=== PATIENT | female | born 1960 | race African-American/Black ===

== ENCOUNTER 2017-03-03 08:54 | Observation (INO) | payer SELFPAY ==
[~2017-03-03] VITALS: Ht 157.5 cm; Wt 95.0 kg
[~2017-03-03 08:54] MED LIST: HYDR-2768 PO; NORV10TA PO; OMPR20CCR PO
[2017-03-03 08:58] VITALS: BP 200/89; PULSE 78; RESP 20; TEMP 98; O2SAT 98
[2017-03-03] MEDS ORDERED: AMLO5TAB2 PO (09:11)
[2017-03-03] MEDS ORDERED: HYDR25TA5 PO (09:11)
[2017-03-03] MEDS ORDERED: ASPIRIN 325 MG TAB PO ONE (09:45)
[2017-03-03] MEDS ORDERED: SODIUM CHLORIDE 0.9% FLUSH 10 ML FLUSH IVF PRN (09:45)
[2017-03-03 09:46] VITALS: RESP 18; O2SAT 100
[2017-03-03 09:47] VITALS: BP 153/78; PULSE 76; RESP 18; O2SAT 100
--- NOTE | 2017-03-03 09:50 | PD ---
HPI Chief Complaint: Chest Pain Time Seen by Provider: 09:39 Travel History International Travel<30 days: No Contact w/Intl Traveler<30days: No Traveled to known affect area: No History of Present Illness HPI The patient was seen and examined in the presence of the nurse. 2 days ago this patient had some pain and pressure. It was centered about the left shoulder but included in the left pectoral region and radiated down her arm toward the hand. Lasted several hours and resolved. Today she complains of palpitations with unsettling sensation in her chest. She does not describe today's sensation as pain or pressure. Not having presyncopal symptoms. Did have some shortness of breath with her chest discomfort. No productive cough or fever congestion. Symptoms severity is moderate. She is highly anxious person. PFSH Past Medical History Arthritis: Yes Asthma: No Autoimmune Disease: No Anxiety: Yes Depression: No Cardiac Catheterization: No Cardiovascular Problems: Yes (htn) High Cholesterol: Yes Chemotherapy: No Chest Pain: Yes Congestive Heart Failure: No COPD: No Diabetes: No Diminished Hearing: No Endocrine: No Gastrointestinal Disorders: Yes GERD: Yes Genitourinary: No Headaches: Yes Hypertension: Yes Immune Disorder: No Kidney Stones: No Musculoskeletal: Yes (FIBROMYALGIA) Neurologic: Yes Psychiatric: Yes Reproductive: No Respiratory: No Migraines: No Myocardial Infarction: No Radiation Therapy: No Renal Failure: No Seizures: No Sickle Cell Disease: No Sleep Apnea: No Thyroid Disease: No Ulcer: Yes Tetanus Vaccination: > 5 Years Influenza Vaccination: Yes PNEUMOCCOCAL Vaccine (Year): 2 ?: Not Menopausal: Yes : 2 Para: 2 Past Surgical History Abdominal Surgery: No AICD: No Arteriovenous Shunt: No Cardiac Surgery: No Section: Yes (X2) Coronary Artery Bypass Graft: No Ear Surgery: No Endocrine Surgery: No Eye Surgery: No Genitourinary Surgery: No Gynecologic Surgery: Yes ( X 2) Hysterectomy: Yes Insulin Pump: No Joint Replacement: No Oral Surgery: No Pacemaker: No Thoracic Surgery: No Other Surgery: Yes Family History Family Myocardial Infarction: Yes (MOTHER IN LATE 50'S ) Social History Alcohol Use: Yes (OCC) Tobacco Use: No Substance Use: No (PT DENIES ) Allergies-Medications (Allergen,Severity, Reaction): Coded Allergies: Codeine (Verified Adverse Reaction, Intermediate, N/V, 7/30/17) Reported Meds & Prescriptions Reported Meds & Active Scripts Active Reported Hydrochlorothiazide 25 Mg Tab 25 Mg PO DAILY Amlodipine (Amlodipine Besylate) 5 Mg Tab 5 Mg PO DAILY Review of Systems General / Constitutional: No: Fever Eyes: No: Visual changes HENT: No: Headaches Cardiovascular: Positive: Chest Pain or Discomfort Respiratory: Positive: Shortness of Breath Gastrointestinal: No: Abdominal Pain Genitourinary: No: Dysuria Musculoskeletal: No: Pain Skin: No Rash Neurologic: No: Weakness Psychiatric: Positive: Anxiety, No: Depression Endocrine: No: Polydipsia Hematologic/Lymphatic: No: Easy Bruising Physical Exam Narrative GENERAL: Well-nourished, well-developed patient in no apparent distress. SKIN: Focused skin assessment reveals no rash and nodules. Skin is Warm and dry. HEAD: Atraumatic. Normocephalic. EYES: Pupils equal and round. No scleral icterus. No injection or drainage. ENT: No nasal bleeding or discharge. Mucous membranes pink and moist. NECK: Trachea midline. No JVD. CARDIOVASCULAR: Regular rate and rhythm. 2/6 systolic murmur appreciated. RESPIRATORY: No accessory muscle use. Clear to auscultation. Breath sounds equal bilaterally. GASTROINTESTINAL: Abdomen soft, non-tender, nondistended. Hepatic and splenic margins not palpable. MUSCULOSKELETAL: No obvious deformities. No clubbing. No cyanosis. No edema. NEUROLOGICAL: Awake and alert. No obvious cranial nerve deficits. Motor grossly within normal limits. Normal speech. PSYCHIATRIC: Anxious mood and affect; insight and judgment normal. Data Data Last Documented VS Vital Signs Date Time Temp Pulse Resp B/P Pulse Ox O2 Delivery O2 Flow Rate FiO2 03/03/17 09:47 76 18 153/78 100 Room Air 03/03/17 08:58 98.0 Orders Electrocardiogram (03/03/17 ) Electrocardiogram (03/03/17 09:44) Basic Metabolic Panel (Bmp) (03/03/17 09:44) Ckmb (Isoenzyme) Profile (03/03/17 09:44) Complete Blood Count With Diff (03/03/17 09:44) Prothrombin Time / Inr (Pt) (03/03/17 09:44) Act Partial Throm Time (Ptt) (03/03/17 09:44) Troponin I (03/03/17 09:44) Chest, Single Ap (03/03/17 09:44) Ecg Monitoring (03/03/17 09:44) Iv Access Insert/Monitor (03/03/17 09:44) Oximetry (03/03/17 09:44) Aspirin (Aspirin) (03/03/17 09:45) Sodium Chloride 0.9% Flush (Ns Flush) (03/03/17 09:45) CKMB (03/03/17 09:41) CKMB% (03/03/17 09:41) Labs Laboratory Tests Test 03/03/17 09:41 White Blood Count 4.9 TH/MM3 Red Blood Count 4.77 MIL/MM3 Hemoglobin 13.8 GM/DL Hematocrit 41.0 % Mean Corpuscular Volume 85.9 FL Mean Corpuscular Hemoglobin 29.0 PG Mean Corpuscular Hemoglobin 33.7 % Concent Red Cell Distribution Width 13.2 % Platelet Count 246 TH/MM3 Mean Platelet Volume 9.5 FL Neutrophils (%) (Auto) 44.0 % Lymphocytes (%) (Auto) 47.9 % Monocytes (%) (Auto) 6.7 % Eosinophils (%) (Auto) 0.9 % Basophils (%) (Auto) 0.5 % Neutrophils # (Auto) 2.1 TH/MM3 Lymphocytes # (Auto) 2.3 TH/MM3 Monocytes # (Auto) 0.3 TH/MM3 Eosinophils # (Auto) 0.0 TH/MM3 Basophils # (Auto) 0.0 TH/MM3 CBC Comment DIFF FINAL Differential Comment Prothrombin Time 10.2 SEC Prothromb Time International 0.9 RATIO Ratio Activated Partial 27.1 SEC Thromboplast Time Sodium Level 137 MEQ/L Potassium Level 3.7 MEQ/L Chloride Level 104 MEQ/L Carbon Dioxide Level 27.7 MEQ/L Anion Gap 5 MEQ/L Blood Urea Nitrogen 16 MG/DL Creatinine 0.66 MG/DL Estimat Glomerular Filtration 111 ML/MIN Rate Random Glucose 96 MG/DL Calcium Level 8.9 MG/DL Total Creatine Kinase 528 U/L Creatine Kinase MB 3.1 NG/ML Creatine Kinase MB % 0.6 % Troponin I LESS THAN 0.02 NG/ML MDM Medical Decision Making Medical Screen Exam Complete: Yes Emergency Medical Condition: Yes Medical Record Reviewed: Yes Differential Diagnosis Differential diagnosis includes WA, angina, pericarditis, pleurisy, GERD, anxiety. Narrative Course I have reviewed the patient's electronic medical record. Patient had a stress test August 2015 which was normal in the chest pain center IV placed I reviewed the EKG which shows sinus rhythm but no ST elevation or ectopy I reviewed the chest x-ray which is under aerated but otherwise negative Extended cardiac monitoring shows sinus rhythm without ectopy CBC is normal Metabolic profile is normal CK has a normal MB percent Troponin is normal Coagulation studies are normal I gave her an aspirin Patient has accelerated hypertension of 200 systolic on arrival. Spontaneously came down into the 150s. Patient has atypical symptoms but will be 23 hour observation in the chest pain center to rule out cardiac cause of her symptoms. Diagnosis Primary Impression: Atypical chest pain Additional Impression: HTN (hypertension) Qualified Code: I10 - Hypertension, unspecified type Admitting Information Admitting Physician Requests: Observation Reed Singleton MD Mar 03, 2017 09:50
[2017-03-03 10:09] LABS: AUTOMATED NEUTROPHIL # 2.1 TH/MM3 (1.8-7.7); BASOPHIL % 0.5 % (0.0-2.0); EOSINOPHIL % 0.9 % (0.0-4.0); HEMO FLAGS DIFF FINAL; LYMPH % 47.9 % (9.0-44.0); LYMPHOCYTE # 2.3 TH/MM3 (1.0-4.8); MEAN CELL VOLUME 85.9 FL (80.0-100.0); MEAN CORPUSCULAR HGB CONC 33.7 % (32.0-36.0); MONO % 6.7 % (0.0-8.0); PLATELET COUNT 246 TH/MM3 (150-450); RED BLOOD COUNT 4.77 MIL/MM3 (4.00-5.30); RED CELL DISTRIBUTION WIDTH 13.2 % (11.6-17.2); WHITE BLOOD COUNT 4.9 TH/MM3 (4.0-11.0)
[2017-03-03 10:16] LABS: APTT (PATIENT) 27.1 SEC (24.3-30.1); INTERNATIONAL NORMALIZED RATIO 0.9 RATIO; PROTHROMBIN TIME - PATIENT 10.2 SEC (9.8-11.6)
[2017-03-03 10:25] LABS: ANION GAP 5 MEQ/L (5-15); BICARBONATE 27.7 MEQ/L (21.0-32.0); BLOOD UREA NITROGEN 16 MG/DL (7-18); CHLORIDE 104 MEQ/L (98-107); GLOMERULAR FILTRATION RATE 111 ML/MIN (>89); POTASSIUM 3.7 MEQ/L (3.5-5.1); SODIUM (NA) 137 MEQ/L (136-145)
[2017-03-03 10:30] LABS: CREATINE KINASE 528 U/L (26-192)
--- NOTE | 2017-03-03 10:39 | RADRPT ---
EXAM DATE/TIME: 03/03/2017 10:12 [facility] COMPARISON: CHEST SINGLE AP, August 08, 2015, 22:39. INDICATIONS : Chest pain. MEDICAL HISTORY : None. SURGICAL HISTORY : None. ENCOUNTER: Initial ACUITY: 1 day PAIN SCORE: 0/10 LOCATION: Bilateral chest FINDINGS: The lungs are under aerated with minimal bibasal probable changes. The cardiomediastinal contours ar e unremarkable. Osseous structures are intact. CONCLUSION: Unaerated, negative for acute process. Phi Ren MD FACR on March 03, 2017 at 10:37 Board Certified Radiologist. This report was verified electronically.
[2017-03-03 10:42] LABS: CKMB 3.1 NG/ML (0.5-3.6)
[2017-03-03] MEDS ORDERED: NITROGLYCERIN 0.4 MG SL 25 TABS/BTL SL PRN (12:30)
[2017-03-03] MEDS ORDERED: ACETAMINOPHEN 500 MG CPLT PO PRN (12:30)
[2017-03-03] MEDS ORDERED: ONDANSETRON HCL 4 MG/2 ML VIAL IV PRN (12:30)
[2017-03-03] MEDS ORDERED: SODIUM CHLORIDE 0.9% FLUSH 10 ML FLUSH IV FLUSH PRN (12:30)
--- NOTE | 2017-03-03 12:50 | HHI.HP ---
HPI Primary Care Physician Cody Dowinng DO Chief Complaint Chest pain History of Present Illness 56-year-old female with history of hypertension, hyperlipidemia, and anxiety presents to emergency room for further evaluation of a "funny feeling" in her chest and left shoulder pain. Onset 4 days ago. Location left shoulder with radiation to her left forearm. Characterized as a dull hurting pain. No particular movements, position, or palpation made pain better or worse. Duration lasted 23 minutes. Stating hours later again experienced left shoulder discomfort with duration of 2 minutes. Since this time intermittent left shoulder pain. Also, concerned over a fluttering in her chest stating ' feels like when you get scared." Denies palpitations or feelings of skipped heartbeats. Duration seconds. No dizziness, or LOC. Endorses current situational stress and history of anxiety. Intermittent fluttering in her chest paired with left intermittent shoulder pain concerned her therefore came to the emergency room for further evaluation. Review of Systems General: No fatigue,weakness, fever, chills, recent illness, recent travel, or change in appetite. Endorses current situational stress. 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 CV: As stated above. No chest pain or pressure. Denies palpitations reports quick, intermittent fluttering in chest. RESP: No SOB, cough GI: No nausea or vomiting. Attempting to lose weight with diet. EXT: No lower leg edema, no paraesthesias MS: As stated above. No change in ROM. Intermittent left shoulder pain with radiation down left arm PSYCH: Endorses situational stress and history of anxiety. Her PCP prescribed Ativan twice a day as needed, states she takes occasionally. Past Family Social History Allergies: Coded Allergies: Codeine (Verified Adverse Reaction, Intermediate, N/V, 03/03/17) Past Medical History Hypertension, hyperlipidemia, anxiety, GERD, arthritis Past Surgical History Hysterectomy, Reported Medications Active Reported Hydrochlorothiazide 25 Mg Tab 25 Mg PO DAILY Amlodipine (Amlodipine Besylate) 5 Mg Tab 5 Mg PO DAILY Was taking prescription gerd medication, cannot recall name of medication. Active Ordered Medications Current Medications Medications (Trade) Dose Ordered Sig/Nazario Route Start Time Stop Time Status Last Admin (NS Flush) 2 ml UNSCH PRN IV FLUSH 03/03/17 12:30 (NS Flush) 2 ml BID IV FLUSH 03/03/17 21:00 (Tylenol) 500 mg Q4H PRN PO 03/03/17 12:30 (Zofran Inj) 4 mg Q6H PRN IV 03/03/17 12:30 (Nitrostat Sl) 0.4 mg Q5M PRN SL 03/03/17 12:30 (Aspirin) 325 mg DAILY PO 03/04/17 09:00 Social History Known hypertension. Recently total cholesterol mildly elevated encouraged to change diet. No known diabetes. Lifelong nonsmoker. Denies any alcohol or illegal drug use. Endorses sedentary lifestyle stating she is unable to make time for personal exercise as she is the sole caregiver of her disabled . Past cardiac testing 08/09/15 Exercise stress test, ambulated 6:48 minutes, no signs of ischemia. Physical Exam Vital Signs Vital Signs Date Time Temp Pulse Resp B/P Pulse Ox O2 Delivery O2 Flow Rate FiO2 03/03/17 09:47 76 18 153/78 100 Room Air 03/03/17 09:46 18 100 Room Air 03/03/17 09:10 81 17 100 Room Air 03/03/17 08:58 98.0 78 20 200/89 98 Room Air Physical Exam GENERAL: Alert WN, WD, NAD, pleasant, obese female HEAD: NC, AT CV: RRR, 2/6 systolic murmur most likely aortic sclerosis, no rub, gallop, or JVD, S1-S2 no S3-S4. No carotid or femoral bruits. RESP: Clear lungs throughout bilateral, no crackles, wheeze, rhonchi, symmetrical chest rise, nonlabored, able to speak in full sentences ABD: Soft, NT, ND, no masses, positive bowel tones EXT: Pulses +24, no dependent edema MS: Normal tone 4 extremities, tender left shoulder with passive external and internal rotation as well as palpation. no obvious deformities, full range of motion NEURO: CN II through CN XII grossly intact, motor strength 5/5 PSYCH: A+O 3, pleasant affect, appropriate speech, appropriate mood and affect , insight and judgment SKIN: Normal turgor, normal texture Laboratory Laboratory Tests Test 03/03/17 09:41 White Blood Count 4.9 Red Blood Count 4.77 Hemoglobin 13.8 Hematocrit 41.0 Mean Corpuscular Volume 85.9 Mean Corpuscular Hemoglobin 29.0 Mean Corpuscular Hemoglobin 33.7 Concent Red Cell Distribution Width 13.2 Platelet Count 246 Mean Platelet Volume 9.5 Neutrophils (%) (Auto) 44.0 Lymphocytes (%) (Auto) 47.9 Monocytes (%) (Auto) 6.7 Eosinophils (%) (Auto) 0.9 Basophils (%) (Auto) 0.5 Neutrophils # (Auto) 2.1 Lymphocytes # (Auto) 2.3 Monocytes # (Auto) 0.3 Eosinophils # (Auto) 0.0 Basophils # (Auto) 0.0 CBC Comment DIFF FINAL Differential Comment Prothrombin Time 10.2 Prothromb Time International 0.9 Ratio Activated Partial 27.1 Thromboplast Time Sodium Level 137 Potassium Level 3.7 Chloride Level 104 Carbon Dioxide Level 27.7 Anion Gap 5 Blood Urea Nitrogen 16 Creatinine 0.66 Estimat Glomerular Filtration 111 Rate Random Glucose 96 Calcium Level 8.9 Total Creatine Kinase 528 Creatine Kinase MB 3.1 Creatine Kinase MB % 0.6 Troponin I LESS THAN 0.02 Result Diagram: 03/03/17 0941 03/03/1741 Imaging Last Impressions Chest X-Ray 03/03/1744 Signed Impressions: Service Date/Time: Friday, March 03, 2017 10:12 - CONCLUSION: Unaerated, negative for acute process. Phi Ren MD FACR Course EKG Normal sinus rhythm, normal axis, no ST or T-segment changes Assessment and Plan Assessment and Plan #1 Atypical chest painadmitted to chest pain center. Seen and evaluated by Dr. Ludwin Last. Ruled out with EKG and cardiac enzymes. Chest discomfort clearly not cardiac related. Normal exercise stress test last year and atypical discomfort will not require further cardiac testing. Reassurance provided, time for questions and answers provided. Plans for discharge. Patient agreeable to plan of care. #2 Left shoulder painencouraged using heat to affected area and may use over- the-counter Aleve or Motrin as needed. If shoulder pain persists, follow-up with PCP in 2 weeks. #3 Hypertensioncontinue amlodipine and HCTZ, encouraged low-sodium diet, and beginning a daily exercise routine. Discussed with PCP possibly adding statin therapy due to systolic murmur noted. #4 Situational stressdiscussed in length feelings in her chest related to anxiety. Encouraged use of Ativan as prescribed by her PCP. Discussed benefits of daily exercise as a way to relieve stress. Allie Henning Mar 03, 2017 12:50
--- NOTE | 2017-03-03 12:58 | HHI.DCPOC ---
Discharge Care Plan Diagnosis: (1) Anxiety (2) Left shoulder pain (3) Situational stress Goals to Promote Your Health * To prevent worsening of your condition and complications * To maintain your health at the optimal level Directions to Meet Your Goals Take your medications as prescribed Follow your dietary instruction Follow activity as directed Keep your appointments as scheduled Take your immunizations and boosters as scheduled If your symptoms worsen call your PCP, if no PCP go to Urgent Care Center or Emergency Room Smoking is Dangerous to Your Health. Avoid second hand smoke Call the 24-hour hour crisis hotline for domestic abuse at Allie Henning Mar 03, 2017 12:58
[2017-03-03 13:03] VITALS: BP 148/81; TEMP 97.8
--- NOTE | 2017-03-03 16:30 | EKG ---
Date Performed: 03/03/2017 Time Performed: 09:19:06 PTAGE: 56 years EKG: Sinus rhythm NORMAL ECG PREVIOUS TRACING : 08/09/2015 04.23 Since previous tracing, no significant change noted DOCTOR: Ludwin Last Interpretating Date/Time 03/03/2017 16:30:34
[2017-03-03] MEDS ORDERED: SODIUM CHLORIDE 0.9% FLUSH 10 ML FLUSH IV FLUSH SCH (21:00)
[2017-03-04] MEDS ORDERED: ASPIRIN 325 MG TAB PO SCH (09:00)
== END 2017-03-03 13:13 | disposition home or self-care (01) ==
LOC: NEPC 08:54 → NEDA 11:45
DX: R07.89 Other chest pain (principal); K21.9 Gastro-esophageal reflux disease without esophagitis; F41.9 Anxiety disorder, unspecified; M25.512 Pain in left shoulder; E78.5 Hyperlipidemia, unspecified; M19.90 Unspecified osteoarthritis, unspecified site; E78.00 Pure hypercholesterolemia, unspecified; M79.7 Fibromyalgia; I10 Essential (primary) hypertension; Z79.899 Other long term (current) drug therapy
CPT/HCPCS: 71010; 80048; 82550; 82552; 84484; 85025; 85610; 85730; 93005; 99285; G0378